=== PATIENT | female | born 1975 ===

== ENCOUNTER 2016-12-13 11:08 | Emergency (ER) | payer BC, MEDICAID ==
[2016-12-13 11:08] VITALS: BMI 26.2
[2016-12-13 11:36] VITALS: PULSE 90; RESP 18; TEMP 98.3; O2SAT 100
--- NOTE | 2016-12-13 12:27 | ED PDOC ---
HPI: Back Time Seen by Provider: 12/13/16 11:53 Chief Complaint (Nursing): Back Pain Chief Complaint (Provider): Back Pain History Per: Patient History/Exam Limitations: no limitations Onset/Duration Of Symptoms: Hrs Current Symptoms Are (Timing): Still Present Severity: Mild Exacerbating Factor(s): Movement Additional Complaint(s): 41 y/o female patient presenting to the ED with lower back pain. PT states that the pain began 9:30am today and she feels the pain primarily when she moves. 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 She states the pain is not radiating and she has not taken anything for the pain. She denies any urination issues, any medication allergies and she suffers from Sciatica. Past Medical History Reviewed: Historical Data, Nursing Documentation, Vital Signs Vital Signs: Last Vital Signs Temp 98.3 F 12/13/16 11:34 Pulse 90 12/13/16 11:34 Resp 18 12/13/16 11:34 BP 117/93 H 12/13/16 11:34 Pulse Ox 100 12/13/16 11:34 - Medical History PMH: Back Problems Other PMH: Sciatica - Surgical History Surgical History: No Surg Hx, - Family History Family History: States: Unknown Family Hx - Immunization History Hx Tetanus Toxoid Vaccination: No Hx Influenza Vaccination: No Hx Pneumococcal Vaccination: No - Home Medications Home Medications: Ambulatory Orders Medication Instructions Recorded Cyclobenzaprine [Cyclobenzaprine 10 mg PO BID PRN #15 tab 11/12/16 HCl] Gabapentin [Neurontin] 100 mg PO TID PRN 11/12/16 Naproxen [Naprosyn] 1 tab PO BID PRN #25 tab 11/12/16 traMADol [Ultram] 50 mg PO TID 11/12/16 Cyclobenzaprine [Cyclobenzaprine 10 mg PO TID #20 tab 12/13/16 HCl] Ibuprofen [Motrin] 600 mg PO Q6 #20 tab 12/13/16 oxyCODONE/Acetaminophen [Percocet 1 ea PO Q6 PRN #5 tab 12/13/16 5/325 mg Tab] - Allergies Allergies/Adverse Reactions: Allergies Allergy/AdvReac Type Severity Reaction Status Date / Time No Known Allergies Allergy Verified 05/06/16 12:16 Review of Systems ROS Statement: Except As Marked, All Systems Reviewed And Found Negative Constitutional: Negative for: Fever Genitourinary Female: Negative for: Dysuria, Hematuria Musculoskeletal: Positive for: Back Pain (lower back pain on both sides). Negative for: Neck Pain, Shoulder Pain Physical Exam - Reviewed Nursing Documentation Reviewed: Yes Vital Signs Reviewed: Yes - Physical Exam Appears: Positive for: Non-toxic, No Acute Distress Skin: Positive for: Normal Color, Warm Respiratory: Positive for: Normal Breath Sounds. Negative for: Respiratory Distress Back: Positive for: L CVA Tenderness, R CVA Tenderness Extremity: Positive for: Normal ROM Neurologic/Psych: Positive for: Alert, Oriented. Negative for: Motor/Sensory Deficits - ECG O2 Sat by Pulse Oximetry: 100 (RA) Pulse Ox Interpretation: Normal Medical Decision Making Medical Decision Making: Time: 1153 Initial impression: Lumbar Sacrum Paraspinal Tenderness Initial plan: --ED Urine --Cyclobenzaprine 10mg --Ketorolac 15mg Pt doing well on re-eval, reports pain slightly improved. Given 1 tab Percocet PO. On second re-eval, Pt reports pain greatly improved. Pt ambulating with steady gait. Scribe Attestation: Documented by Allegra Sr acting as a scribe for RINKU Thorne MD Scribe Attestation: All medical record entries made by the Scribe were at my direction and personally dictated by me. I have reviewed the chart and agree that the record accurately reflects my personal performance of the history, physical exam, medical decision making, and the department course for this patient. I have also personally directed, reviewed, and agree with the discharge instructions and disposition. Disposition - Clinical Impression Clinical Impression: Low back pain - Patient ED Disposition Is Patient to be Admitted: No - Disposition Disposition: Routine/Home Disposition Time: 14:52 Condition: STABLE Prescriptions: Cyclobenzaprine [Cyclobenzaprine HCl] 10 mg PO TID #20 tab Ibuprofen [Motrin] 600 mg PO Q6 #20 tab oxyCODONE/Acetaminophen [Percocet 5/325 mg Tab] 1 ea PO Q6 PRN #5 tab PRN Reason: Pain, Severe (8-10) Instructions: Acute Low Back Pain (ED) Forms: [employer] (Guyanese)
[2016-12-13] MEDS ORDERED: Oxycodone/Acetaminophen 5/325 mg Tab PO STA (13:48)
[2016-12-13 15:11] VITALS: BP 131/80
== END 2016-12-13 15:11 | disposition home or self-care (01) ==
LOC: H.ER 11:08
DX: M54.5 Low back pain (principal)

== ENCOUNTER 2017-10-22 16:38 | Emergency (ER) | payer BC, MEDICAID ==
[2017-10-22 16:39] VITALS: BMI 26.4
[2017-10-22 17:12] VITALS: BP 126/81; PULSE 76; RESP 19; TEMP 98.7; O2SAT 100
--- NOTE | 2017-10-22 17:57 | ED PDOC ---
HPI: Back Time Seen by Provider: 10/22/17 17:23 Chief Complaint (Nursing): Back Pain Chief Complaint (Provider): Neck Pain History Per: Patient History/Exam Limitations: no limitations Onset/Duration Of Symptoms: Days (x2) Current Symptoms Are (Timing): Still Present Additional Complaint(s): Patient presents complaining of right-sided neck pain, onset yesterday after she "cracked" her neck. Pain is localized to the lateral side and radiates to the top of her right shoulder, and worsens with movement. She reports pain is improving at this time. Otherwise: (-) trauma, (-) fall, (-) injury, (-) paresthesias, (-) weakness, (-) headache, (-) fever, (-) URI symptoms. PMD: Harsh Epps Past Medical History Reviewed: Historical Data, Nursing Documentation, Vital Signs Vital Signs: Last Vital Signs Temp 98.7 F 10/22/17 17:10 Pulse 76 10/22/17 17:10 Resp 19 10/22/17 17:10 BP 126/81 10/22/17 17:10 Pulse Ox 100 10/22/17 17:10 - Medical History PMH: Back Problems - Surgical History Surgical History: - Family History Family History: States: Unknown Family Hx - Immunization History Hx Tetanus Toxoid Vaccination: No Hx Influenza Vaccination: No Hx Pneumococcal Vaccination: No - Home Medications Home Medications: Ambulatory Orders Medication Instructions Recorded Ibuprofen [Motrin] 600 mg PO Q8 #30 tab 09/14/17 Cyclobenzaprine [Cyclobenzaprine 10 mg PO TID PRN #15 tab 10/22/17 HCl] Meloxicam [Mobic] 15 mg PO DAILY PRN #30 tab 10/22/17 - Allergies Allergies/Adverse Reactions: Allergies Allergy/AdvReac Type Severity Reaction Status Date / Time No Known Allergies Allergy Verified 09/14/17 21:34 Review of Systems ROS Statement: Except As Marked, All Systems Reviewed And Found Negative Constitutional: Negative for: Fever, Chills ENT: Negative for: Throat Pain Respiratory: Negative for: Cough Musculoskeletal: Positive for: Neck Pain. Negative for: Back Pain Neurological: Negative for: Weakness, Numbness, Headache Physical Exam - Reviewed Nursing Documentation Reviewed: Yes Vital Signs Reviewed: Yes - Physical Exam Comments: GENERAL APPEARANCE: Patient is awake, alert, oriented x 3, in no acute distress. SKIN: Warm, dry; (-) cyanosis. EYES: (-) conjunctival pallor. ENMT: Mucous membranes moist. NECK: (-) tenderness, (-) stiffness, (-) lymphadenopathy. CHEST AND RESPIRATORY: (-) rales, (-) rhonchi, (-) wheezes; breath sounds equal bilaterally. HEART AND CARDIOVASCULAR: (-) irregularity; (-) murmur, (-) gallop. ABDOMEN AND GI: Soft; (-) tenderness; (-) palpable mass. BACK: (-) direct bony tenderness, (-) deformity. EXTREMITIES: (-) deformity. Distal pulses good bilaterally. NEURO AND PSYCH: Mental status as above. Intact sensation bilaterally; normal strength. - ECG O2 Sat by Pulse Oximetry: 100 (RA) Pulse Ox Interpretation: Normal Medical Decision Making Medical Decision Making: Impression: Neck strain Time: 17:44 Plan: Based on history and exam findings, patient will be discharged home. Patient counseled regarding dx of muscle strain/spasm. Provided prescriptions for cyclobenzaprine and meloxicam. Advised to follow up with primary care physician in 1-2 days without fail. Advised to take medication as prescribed. Return to the emergency room at any time for any new or worsening symptoms. Patient states she fully agrees with and understands discharge instructions. States that she agrees with the plan and disposition. Verbalized and repeated discharge instructions and plan. I have given the patient opportunity to ask any additional questions. Scribe Attestation: Documented by Loretta Hodge, acting as a scribe for Marilu Zayas PA-C. Provider Scribe Attestation: All medical record entries made by the Scribe were at my direction and personally dictated by me. I have reviewed the chart and agree that the record accurately reflects my personal performance of the history, physical exam, medical decision making, and the department course for this patient. I have also personally directed, reviewed, and agree with the discharge instructions and disposition. Disposition - Clinical Impression Clinical Impression: Neck muscle strain - Patient ED Disposition Is Patient to be Admitted: No Counseled Patient/Family Regarding: Diagnosis, Need For Followup, Rx Given - Disposition Referrals: Quique Ware MD [Non-Staff] - Disposition: Routine/Home Disposition Time: 17:35 Condition: STABLE Additional Instructions: Thank you for letting us take care of you today. You were treated for neck muscle strain. The emergency medical care you received today was directed at your acute symptoms. If you were prescribed any medication, please fill it and take as directed. It may take several days for your symptoms to resolve. Return to the Emergency Department if your symptoms worsen, do not improve, or if you have any other problems. Please contact your doctor in 2 days for re-evaluation and follow up / or call one of the physicians/clinics you have been referred to that are listed on the Patient Visit Information form that is included in your discharge packet. Bring any paperwork you were given at discharge with you along with any medications you are taking to your follow up visit. Our treatment cannot replace ongoing medical care by a primary care provider (PCP) outside of the emergency department. Thank you for allowing the [facility] team to be part of your care today. Prescriptions: Cyclobenzaprine [Cyclobenzaprine HCl] 10 mg PO TID PRN #15 tab PRN Reason: Muscle Spasm Meloxicam [Mobic] 15 mg PO DAILY PRN #30 tab PRN Reason: Pain, Moderate (4-7) Instructions: Cervical Muscle Strain (DC) Forms: [employer] (Andorran), [facility] ED School/Work Excuse - POA Present On Arrival: None
== END 2017-10-22 18:01 | disposition home or self-care (01) ==
LOC: H.ER 16:38
DX: S16.1XXA Strain of muscle, fascia and tendon at neck level, initial encounter (principal)